=== PATIENT | male | born 1945 | race Hispanic/Latino ===

== ENCOUNTER 2018-10-26 03:42 | Emergency (ER) | payer MEDICARE ==
[2018-10-26 03:50] VITALS: BP 149/77
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
[2018-10-26] MEDS ORDERED: IBUPROFEN PO ONE (08:46)
== END 2018-10-26 20:30 | disposition home or self-care (01) ==
LOC: ED 03:42
DX: Z04.1 Encounter for examination and observation following transport accident (principal)
CPT/HCPCS: 99282